=== PATIENT | male | born 1980 | race African-American/Black ===

== ENCOUNTER 2019-10-25 07:05 | Emergency (ER) | payer OTHER ==
[~2019-10-25] VITALS: Ht 195.6 cm; Wt 136.5 kg
[~2019-10-25 07:05] MED LIST: AMOXICILLIN500 M1 PO; FLONASE 0.05%50 MCG NASAL; IBUPROFEN 600600 M1 PO; PREDNISONE 20 M20 MG PO; VENTOLIN HFA 1818 GM INH
[2019-10-25] MEDS ORDERED: DOXYCYCLINE HY100 M3 PO (08:28)
[2019-10-25] MEDS ORDERED: VENTOLIN HFA 1818 GM INH (08:28)
[2019-10-25] MEDS ORDERED: PREDNISONE 20 M20 MG PO (08:28)
[2019-10-25 09:01] VITALS: BP 143/82
== END 2019-10-25 09:31 | disposition home or self-care (01) ==
LOC: ER 07:05
DX: J20.9 Acute bronchitis, unspecified (principal); J06.9 Acute upper respiratory infection, unspecified; E66.9 Obesity, unspecified; J45.909 Unspecified asthma, uncomplicated; G43.909 Migraine, unspecified, not intractable, without status migrainosus; Z68.35 Body mass index [BMI] 35.0-35.9, adult